=== PATIENT | female | born 1960 | race Caucasian/White ===

== ENCOUNTER 2022-06-07 15:13 | Outpatient (CLI) | payer OTHER, SELFPAY ==
--- NOTE | ~2022-06-07 | MM_ITS ---
EXAMINATION: MM screening [facility] BI w laurent HISTORY: Screening TECHNIQUE: Craniocaudal and mediolateral oblique 3-D tomosynthesis images were obtained and synthetic 2-D images were generated. CAD analysis was submitted and interpreted. COMPARISON: No prior mammogram is available for comparison at this institution. BREAST PARENCHYMAL COMPOSITION: The breasts are heterogeneously dense, which may obscure small masses . FINDINGS: There is no evidence of suspicious mass, calcification, or architectural distortion to sugg est malignancy in either breast. There has been no suspicious interval change. IMPRESSION: 1. No mammographic evidence of malignancy. 2. Recommend routine screening mammography in one year. BI-RADS Category 1: Negative Reviewed, dictated and finalized at location A. SLAUGHTERER
== END 2022-06-07 15:14 | disposition home or self-care (01) ==
LOC: ANHIMG 15:20
PROVIDERS: Visit Provider Family Medicine
DX: Z12.31 Encounter for screening mammogram for malignant neoplasm of breast (principal)
CPT/HCPCS: 77063; 77067

== ENCOUNTER 2023-06-28 12:51 | Outpatient (CLI) | payer OTHER, SELFPAY ==
--- NOTE | ~2023-06-28 | MM_ITS ---
EXAMINATION: MM screening yes[facility] BI w laurent HISTORY: Screening TECHNIQUE: Craniocaudal and mediolateral oblique 3-D tomosynthesis images were obtained and synthetic 2-D images were generated. CAD analysis was submitted and interpreted. COMPARISON: 06/07/2022 BREAST PARENCHYMAL COMPOSITION: Dense: The breasts are heterogeneously dense, which may obscure small masses FINDINGS: There is no evidence of suspicious mass, calcification, or architectural distortion to sugg est malignancy in either breast. There has been no suspicious interval change. IMPRESSION: 1. No mammographic evidence of malignancy. 2. Recommend routine screening mammography in one year. BI-RADS Category 1: Negative Reviewed, dictated and finalized at location A. TABOUT
== END 2023-06-28 12:52 | disposition home or self-care (01) ==
LOC: ANHIMG 12:57
PROVIDERS: Visit Provider Family Medicine
DX: Z12.31 Encounter for screening mammogram for malignant neoplasm of breast (principal)
CPT/HCPCS: 77063; 77067

== ENCOUNTER 2024-07-03 13:58 | Outpatient (CLI) | payer OTHER, SELFPAY ==
--- NOTE | ~2024-07-03 | MM_ITS ---
EXAMINATION: MM screening [facility] BI w laurent HISTORY: Screening mammogram TECHNIQUE: Craniocaudal and mediolateral oblique 3-D tomosynthesis images were obtained and synthetic 2-D images were generated. CAD analysis was submitted and interpreted. COMPARISON: 06/28/2023, 06/07/2022 BREAST PARENCHYMAL COMPOSITION:Dense: The breasts are heterogeneously dense, which may obscure small masses. FINDINGS: No suspicious mass, calcification, or architectural distortion are identified in either ty ast to suggest malignancy. There has been no suspicious interval change. IMPRESSION: No mammographic evidence of malignancy. Recommend routine screening mammography in one year. BI-RADS Category 1: Negative Reviewed, dictated and finalized at location . ALLERGY
--- OUTSIDE RECORDS SUMMARY | 2024-07-03 15:58 | XMS_ITS | Patient Health Summary ---
Author Organization [facility] [employer] Address [address] [place] [address] Care Team Providers Care Rust Proofer Name Role Phone Wendy Blanc MD Primary Care Provider [phone] Note from [facility],non-owned Affiliates and Associated Physician Practices is amultiple site organization consisting of ambulatory clinics and hospital sitesin [place], [place], [place] and [place]. This disclosure is being madepursuant to the Care Everywhere program and may not contain all information available regarding this patient. Last updated 18.[facility] [employer] Allergies No known active allergies Medications Be aware that medications may not be up to date on this document. Always verify current medications with the patient. No known medications Active Problems Problem Noted Date Diagnosed Date Encounter for cosmetic procedure 12/04/2023 Social History Tobacco Use Types Packs/Day Years Used Date Smoking Tobacco: Never Smokeless Tobacco: Never Tobacco Cessation:Counseling Given: Not Answered Alcohol Use Standard Drinks/Week Comments Yes 0 (1 standard drink = 0.6 oz pur e alcohol) socially Sex and Gender Information Value Date Recorded Sex Assigned at Not on file Gender Identity Not on file Sexual Orientation Not on file Procedures * XR KNEE RIGHT 4VW OR MORE(Performed 10/28/2014) Performed for Pain in joint, lower leg, right Results * XR KNEE 4+ VW RIGHT (10/28/2014 1:11 PM CDT) Anatomical Region Laterality Modality Lower Extremity Radiographic Svaannah ging 10/28/2014 3:17 PM CDT Impressions 10/28/2014 3:47 PM CDT Minimal spurring. Edited by Michelle Aguilar on 10/28/2014 3:27 PM Narrative 10/28/2014 3:47 PM CDT Right Knee - Four Views. History: Knee pain. Four views of the knee demonstrate well-maintained joint spaces. There is minimal spurring on the distal femur laterally. There is no joint effusion identified. Procedure Note Gama Aragon MD - 10/28/2014 Right Knee - Four Views. History: Knee pain. Four views of the knee demonstrate well-maintained joint spaces. There is minimal spurring on the distal femur laterally. There is no joint effusion identified. IMPRESSION Minimal spurring. Edited by Michelle Aguilar on 10/28/2014 3:27 PM Vinay Morocho MD DIAGNOSTIC IMAGING O [facility] Care Teams Rust Proofer Relationship Specialty Start Date End Date Wendy Blanc MD PCP - General Family Medicine 11/28/23
--- OUTSIDE RECORDS SUMMARY | 2024-07-03 15:58 | XMS_ITS | Clinical Summary ---
Author Organization [facility] [employer] Address [address] [place] [address] Care Team Providers Care Extension Service Specialist Name Role Phone Wendy Blanc MD Primary Care Provider [phone]- [phone] Source Comments [facility] [employer],non-[facility] Affiliates and Associated Physician Practices is amultiple site organization consisting of ambulatory clinics and hospital sitesin [place], [place], [place] and [place]. This disclosure is being madepursuant to the Care Everywhere program and may not contain all information available regarding this patient. Last updated 18.[employer] Allergies No known active allergies Medications * Be aware that medications may not be up to date on this document. Alwaysverify current medications with the patient. 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 Cosmetic Visit [facility] - Cosmetic Dermatology [address] [place] [address] Mariah Albright MD Encounter for cosmetic procedure 06/20/2024 Travel from Last 3 Months Family History Medical History Relation Name Comments Cancer - Skin, Melanoma Neg Hx Cancer - Skin, Non Melanoma Neg Hx Social History Tobacco Use Types Packs/Day Years Used Date Smoking Tobacco: Never Smokeless Tobacco: Never Tobacco Cessation:Counseling Given: Not Answered Alcohol Use Standard Drinks/Week Comments Yes 0 (1 standard drink = 0.6 oz pur e alcohol) socially Sex and Gender Information Value Date Recorded Sex Assigned at Not on file Gender Identity Not on file Sexual Orientation Not on file Plan of Treatment Upcoming Encounters Date Type Department Care Team (Late st Contact Info) Description 09/26/2024 2:00 PM CDT Cosmetic Visit [facility] - Cosmetic Dermatology [address] [place] [address] Mariah Albright MD [address] [place] [address] Health Maintenance Due Date Last Done Comments COLOGUARD (AGES 45-75) - COL ON CA SCREENING 1961 COLON MONITORING 1961 COLONOSCOPY - COLON CA SCREENING 1961 CT COLONOGRAPHY - COLON CA SCREENING 1961 Colorectal Cancer Screening 1961 FIT - COLON CA SCREENING 1961 FLEX SIG - COLON CA SCREENING 1961 LIPID TESTING 1961 MAMMOGRAM 1961 PAP SMEAR 1961 HIV SCREENING 1976 HEPATITIS C SCREENING 03/17/1979 DTAP/TDAP/TD VACCINES (1 - Tdap) 1980 PNEUMOCOCCAL VACCINE 50+ (1 of 1 - PCV) 2011 ZOSTER VACCINE (1 of 2) 2011 COVID-19 VACCINE ( - 2023-2 5 season) 2024 INFLUENZA VACCINE (#1) 2024 DEPRESSION SCREENING 05/08/2024 Respiratory Syncytial Virus (RSV) Vaccine Pt: or over 60 yrs (1 - 1-dose 75+ series) 2036 HEPATITIS B VACCINE Aged Out No longe r eligible based on patient's age to complete this topic HIB VACCINE Aged Out No longer eligi ble based on patient's age to complete this topic HPV VACCINE Aged Out No longer eligi ble based on patient's age to complete this topic MENINGOCOCCAL (Group B) VACCINE Aged Out No longer eligible based on patient's age to complete this topic MENINGOCOCCAL VACCINE Aged Out No megan alise eligible based on patient's age to complete this topic Care Teams Extension Service Specialist Relationship Specialty Start Date End Date Wendy Blanc MD PCP - General Family Medicine 11/28/23
--- OUTSIDE RECORDS SUMMARY | 2024-07-03 15:58 | XMS_ITS | Referral Summary ---
Author Organization [facility] [employer] Address [address] [place] [address] Care Team Providers Care Agricultural Equipment Sales Engineer Name Role Phone Wendy Blanc MD Primary Care Provider [phone]- [phone] Source Comments [facility] [employer],non-[facility] Affiliates and Associated Physician Practices is amultiple site organization consisting of ambulatory clinics and hospital sitesin [place], [place], [place] and [place]. This disclosure is being madepursuant to the Care Everywhere program and may not contain all information available regarding this patient. 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 Cosmetic Visit [facility] - Cosmetic Dermatology [address], [facility] [address] [place] [id number] Mariah Albright MD Encounter for cosmetic procedure from Last 3 Months Allergies No known active allergies Medications * [...] Dermatology [address] [place] [address] Mariah Albright MD [address] [place] [address] Care Teams Agricultural Equipment Sales Engineer Relationship Specialty Start Date End Date Wendy Blanc MD PCP - General Family Medicine 11/28/23
--- OUTSIDE RECORDS SUMMARY | 2024-07-03 15:58 | XMS_ITS | Clinical Summary ---
Author Organization [facility] Address [address] [facility] [facility], [address] [address] Phone Care Team Providers Care Sander And Buffer Name Role Phone Evaristo Goldberg MD Unavailable [phone] Provider, None Primary Care Provider Unavailabl e Allergies No known active allergies Medications No known medications Family History Medical History Relation Name Comments Diabetes Father Cancer Mother colon? Cancer Paternal Grandmother breast Relation Name Status Comments Father Mother Paternal Grandmother Social History Tobacco Use Types Packs/Day Years Used Date Smoking Tobacco: Never Smokeless Tobacco: Never Alcohol Use Standard Drinks/Week Comments Yes 2 (1 standard drink = 0.6 oz pur e alcohol) Comments Unknown Sex and Gender Information Value Date Recorded Sex Assigned at Not on file Legal Sex Female 2:23 PM CDT Gender Identity Not on file Sexual Orientation Not on file Last Filed Vital Signs Vital Sign Reading Time Taken Comments Blood Pressure - - Pulse - - Temperature - - Respiratory Rate - - Oxygen Saturation - - Inhaled Oxygen Concentration - - Weight 53.1 kg (117 lb) 03/09/2018 7:00 AM CDT Height 157.5 cm (5' 2 ) 03/09/2018 7:00 AM CDT Body Mass Index 21.4 03/09/2018 7:00 AM CDT Plan of Treatment Health Maintenance Due Date Last Done Comments Hepatitis C Virus (HCV) Screening 1961 TdaP Immunization 1961 Pap Smear 1982 Cervical Cancer Screening (CCS) 1991 HPV/Cotest 1991 Colonoscopy 2006 Colorectal Cancer Screening 2006 Cologuard 2011 Immunochemical Fecal Occult Blood 2011 Mammogram 2011 Pneumococcal Immunization (5 0+ years) (1 of 1 - PCV) 2011 Zoster Immunization (1 of 2) 2011 Influenza Immunization (#1) 2024 SARS-COV-2 Immunization ( - 2023- season) 2024 Respiratory Syncytial Virus (RSV) Immunization (Adult) (1 - 1-dose 75+ series) 2036 Hepatitis B Immunization Aged Out No longer eligible based on patient's age to complete this topic Meningococcal Immunization (ACWY) Aged Out No longer eligible based on patient's age to complete this topic Pneumococcal Immunization Combined Aged Out No longer eligible based on patient's age to complete this topic Rotavirus Immunization Aged Out No lo nger eligible based on patient's age to complete this topic Insurance [employer] Care Teams Sander And Buffer Relationship Specialty Start Date End Date Provider, None [place] PCP - General 03/15/18 Evaristo Goldberg MD [address] [facility] [address] [address] Obstetrics & Gynecology 01/11/18
--- OUTSIDE RECORDS SUMMARY | 2024-07-03 15:58 | XMS_ITS | Data Portability ---
Author Organization [facility] Maura Covarrubias Address [address] [place] [address] Care Team Providers Care Business Development Agent Name Role Phone KAROLINE LIZAMA Primary Care Provider OSVALDO MABRY Derrick Boat Runner Unavailable Assessment No assessment recorded. Plan of Treatment Reminders Order Date Submit Date Provider Last Modified By Organization Details Last Modified Time Details Appointments None recorded. Lab pap, IG + HPV 2019 020 [facility], [address] [place] [address] [place], [address], 0 20:35:50 Referral None recorded. Procedures None recorded. Surgeries None recorded. Imaging MAMMO, screening, digital, bilateral 2024 025 [facility] (Mammography) , [address], [place], [address], 5 15:53:10 MAMMO, screening, digital, bilateral 2022 023 [facility] (Mammography) , [address], [place], [address], 4 11:38:55 MAMMO, screening, digital, bilateral - pt is IBCCP 2021 022 [facility], [address] [place] [address] [address], [place], [address], 3 13:28:35 MAMMO, screening, digital, bilateral 2019 020 [facility], [address], [place], [address], 0 22:30:42 MAMMO, screening, digital, bilateral - [facility] [place]. 2016 017 [facility], [address], [place], [address], 7 10:15:46 Medication Orders None recorded. Patient TargetsNo targets recorded. Patient Instructions Encounter Date Encounter Id Patient Instructions Last Modified By Organization Details Last Modified Time 04/06/2020 [id number] learning about breast cancer screening [email or web address] Not available 04/06/2020 11:27:59 Reason for Referral None Reported. Results Created Date Observation Date Name Description Value Unit Range Abnormal Flag Note LastModifiedBy Organization Detail LastModifiedTime 04/06/20 20 04/08/2020 pap, IG + HPV diagnosis: Rasta DUNBAR FOR INTRA EPITH ELIAL SABINE N OR DREW THOMPSON . CELLU LAR CASTELAN ES ASSOC IATED WITH ATROP HY ARE PRESE NT. Not Available [facility] ([facility]) [address] [facility], [place], [address], 04/08/2020 20:35:50 04/06/20 20 04/08/2020 pap, IG + HPV specimen adequacy: Rasta walsh Satis facto ry for evalu ation . Endoc ervic al compo nent may not be disti nguis hed in cases of atrop hy. Not Available [facility] ([facility]) [address], [place], [address], 04/08/2020 20:35:50 04/06/20 20 04/08/2020 pap, IG + HPV clinician provided ICD10: Rasta walsh Z12.4 Not Available [facility] ([facility]) [address] [facility] [address], [place], [address], 04/08/2020 20:35:50 04/06/20 20 04/08/2020 pap, IG + HPV performed by: Commen t Reyna Harri son, [employer] e[employer] logis t (ASCP ) Not Available [facility] ([facility]) [address], [place], [address], 04/08/2020 20:35:50 04/06/20 20 04/08/2020 pap, IG + HPV . . Not Available [facility] ([facility]) [address], [place], [address], 04/08/2020 20:35:50 04/06/20 20 04/08/2020 pap, IG + HPV note: Commen t The Pap smear is a scree missy test desig ko to aid in the detec tion of justo ligna nt and malig nant condi tions of the uteri ne cervi x. It is not a diagn ostic proce dure and shoul d not be used as the sole means of detec ting cervi antonia cance r. Both false -posi tive and false -nega tive repor ts do occur . Not Available [facility] ([facility]) [address], [place], [address], 04/08/2020 20:35:50 04/06/20 20 04/08/2020 pap, IG + HPV test methodology: Rasta t This liqui d based ThinP rep(R ) pap test was scree ko with the use of an image guide sylvester mortensen. Not Available [facility] ([facility]) [address], [place], [address], 04/08/2020 20:35:50 04/06/20 20 04/08/2020 pap, IG + HPV HPV, high-risk Negati ve negati ve This nucle ic acid ampli ficat ion high- risk HPV test detec ts thirt een high- risk types (16,1 8,31, 33,35 ,39,4 5,51, 52,56 ,58,5 9,68) witho ut diffe renti ation . EFF ECTIV E JANUA RY 2020 THIS TEST WILL BE MADE NON-O RDERA BLE. SEE [facility] RP DIREC TORY OF SERVI BUCK FOR ALTER NATIV ES TO THE HIGH RISK HPV TEST. ANY PROFI LE THAT INCLU ROBER THIS TEST WILL ALSO BE MADE NON-O RDERA BLE.* * Not Available [facility] ([facility]) [address], [place], [address], 04/08/2020 20:35:50 09/28/19 17 09/22/2015 MAMMO , jge missy, bilat eral No observ ation record ed. BARCODE Not Available 2016 15:57:14 10/01/19 17 09/28/2016 MAMMO , jge missy, digit al, bilat eral No observ ation record ed. [address] [facility] [address], [place], [address], 09/30/2016 16:09:57 04/15/20 20 04/14/2020 MAMMO , ruthie louis, digit al, bilat eral No observ ation record ed. [facility] [address], [place], [address], 04/16/2020 11:35:49 04/28/20 20 04/28/2020 MAMMO , diagn ostic , unila teral No observ ation record ed. [facility] [address], [place], [address], 05/06/2020 09:48:40 04/28/20 20 04/28/2020 MAMMO , diagn ostic , unila teral No observ ation record ed. [facility] [address], [place], [address], 05/06/2020 09:49:09 06/08/19 23 06/07/2022 MAMMO , jge missy, digit al, bilat eral No observ ation record ed. [facility] [address], [place], [address], 06/08/2022 16:06:26 06/29/19 24 06/28/2023 MAMMO , ruthie louis, mari al, bilrupinder wong No observ ation record ed. [facility] [address], [place], [address], 06/30/2023 15:22:32 Result Notes None recorded. Problems Name Problem SNOMED Code Status Onset Date Resolution Date Notes Provider Name and Address Organization Details Recorded Time No current problems or disability 861833392 Active Cary Junior [place] null, [place] - [place] 3 14:06:25 Screening for malignant neoplasm of colon Completed 201604/18/2022 OSVALDO MABRY MD Attn: Loy sol,[address] [facility], [place], [address], [facility] - [place] 2 16:57:59 Problem Notes None recorded. Procedures Surgical History Date Name Laterality Status Provider Name and Address Organization Details Recorded Time 4 Date of Last Mammogram completed Carola Loomis [place] - [place] 05/16/2024 14:38:20 0 Date of Last Pap Smear completed Shea Anthony [place] - [place] 04/18/2022 16:16:01 9 Wrist arthroscopy/oneal rgery completed Tc Singh [place] - [place] 09/27/2016 14:47:50 Imaging Results Imaging Date Name Status [facility]Modified by [facility] Details LastModified Time 09/22/2015 MAMMO, screening, bilateral completed [facility] Information not available 09/27/2016 15:57:14 09/28/2016 MAMMO, screening, digital, bilateral completed [place] [id number] [facility] [address] [place], [address], 09/30/2016 16:09:57 04/14/2020 MAMMO, screening, digital, bilateral completed [facility] [address] [place], [address], 04/16/2020 11:35:49 04/28/2020 MAMMO, diagnostic, unilateral completed [facility] [address], [place], [address], 05/06/2020 09:48:40 04/28/2020 MAMMO, diagnostic, unilateral completed [facility] [address], [place], [address], 05/06/2020 09:49:09 06/07/2022 MAMMO, screening, digital, bilateral completed [address] [place] [address], [address], 06/08/2022 16:06:26 06/28/2023 MAMMO, screening, digital, bilateral completed [address], [address], 06/30/2023 15:22:32 Procedure Notes None recorded. Medical Equipment None Reported. Allergies No known drug allergies Medications Name Sig Start Date Stop Date Status Note LastModified by Organization Details LastModified Time azithromyc in 250 mg tablet FOLLOW PACKAGE DIRECTION S 04/26 completed Not Available Not Available Not Available benzonatat e 200 mg capsule 04/26 completed Not Available Not Available Not Available estradiol 0.1 mg/24 hr semiweekly transderma l patch APPLY 1 PATCH TRANSDERM ALLY 2 TIMES PER WEEK 05/16 completed not using Not Available Not Available Not Available penicillin V potassium 500 mg tablet TAKE 1 TABLET BY MOUTH EVERY 6 HOURS UNTIL ALL TAKEN 04/18 completed Not Available Not Available Not Available amoxicilli n 500 mg tablet TAKE 1 TABLET BY MOUTH EVERY 8 HOURS FOR 5 DAYS. 05/16 completed Not Available Not Available Not Available progestero ne micronized 200 mg capsule TAKE 2 CAPSULES BY MOUTH AT BEDTIME 04/26 completed Not Available Not Available Not Available BD Tuberculin Syringe 1 mL 25 gauge x 5/8 U TO INJECT T2 04/06 completed Not Available Not Available Not Available ibuprofen 600 mg tablet TAKE 1 TABLET BY MOUTH EVERY 8 HOURS NEEDED FOR PAIN FOR 5 DAYS 05/16 completed Not Available Not Available Not Available methylpred nisolone 4 mg tablets in a dose pack FOLLOW PACKAGE DIRECTION S 04/26 completed Not Available Not Available Not Available amoxicilli n 875 mg-potassi um clavulanat e 125 mg tablet TAKE 1 TABLET BY MOUTH EVERY 12 HOURS FOR 10 DAYS 04/26 completed Not Available Not Available Not Available Vitals Date Recorded Body weight Body mass index (BMI) Body height Systolic blood pressure Diastolic blood pressure Provider Name and Address Organization Details Last Updated DateTime 04/06/2020 26185.78 g 22.4 kg/m2 157.48 cm 118 mm[Hg] 72 mm[Hg] Lotus Morriste [facility] 0 11:12:17 Date Recorded Body height Body mass index (BMI) Body weight Body temperature Oxygen saturation Oxygen saturation in Arterial blood by Pulse oximetry Heart rate Systolic blood pressure Diastolic blood pressure Provider Name and Address Organization Details Last Updated DateTime 2 157.48 cm 22.6 kg/m2 79225.6 1 g 97.9 [degF] 96 % 96 % 64 /min 106 mm[Hg] 68 mm[Hg] Shea Anthony MA [facility] 2 16:11:58 Date Recorded Body height Body mass index (BMI) Body weight Oxygen saturation Oxygen saturation in Arterial blood by Pulse oximetry Heart rate Respiratory rate Body temperature Systolic blood pressure Diastolic blood pressure Provider Name and Address Organization Details Last Updated DateTime 3 157.48 cm 21.6 kg/m2 51644.2 6 g 98 % 98 % 61 /min 12 /min 98.4 [degF] 97 mm[Hg] 67 mm[Hg] Cary Junior MA [facility] 3 14:09:53 Date Recorded Body height Body mass index (BMI) Body weight Oxygen saturation Oxygen saturation in Arterial blood by Pulse oximetry Heart rate Body temperature Systolic blood pressure Diastolic blood pressure Provider Name and Address Organization Details Last Updated DateTime 5 157.48 cm 22.5 kg/m2 88451.2 1 g 97 % 97 % 52 /min 97.8 [degF] 109 mm[Hg] 65 mm[Hg] Carola Loomis MA [facility] 5 14:36:02 Date Recorded Body height Body weight Body mass index (BMI) Body temperature Heart rate Respiratory rate Systolic blood pressure Diastolic blood pressure Provider Name and Address Organization Details Last Updated DateTime 7 157.48 cm 09257.6 8 g 21.9 kg/m2 98.3 [degF] 72 /min 12 /min 110 mm[Hg] 64 mm[Hg] Tc Singh [facility] 7 14:44:11 Social History Question Answer Notes LastModified by Organizat ion Details LastModified Time Tobacco Smoking Status Never Smoker Tc Singh [facility], [facility] 09/27/2016 14:46:26 Do You Have An Advance Directive? Yes Information not available 09/27/2016 What Is Your Level Of Alcohol Consumption? Occasional Just A Glass Of Wine Here Of There Information not available 04/18/2022 Are You Blind Or Do You Have Difficulty Seeing? No Information not available 04/26/2023 Is Blood Transfusion Acceptable In An Emergency? Yes Information not available 04/06/2020 What Is Your Level Of Caffeine Consumption? Moderate Information not available 09/27/2016 How Much Tobacco Do You Chew? None Information not available 09/27/2016 In The 14 Days Before Symptom Onset, Have You Had Close Contact With A Laboratory-confir med COVID-19 While That Case Was Ill? No Information not available 04/18/2022 In The 14 Days Before Symptom Onset, Have You Had Close Contact With A Person Who Is Under Investigation For COVID-19 While That Person Was Ill? No Information not available 04/18/2022 Have You Been To An Area Known To Be High Risk For COVID-19? No Information not available 04/18/2022 Are You Currently Employed? Yes Information not available 04/06/2020 Are You Deaf Or Do You Have Serious Difficulty Hearing? No Information not available 04/26/2023 What Type Of Diet Are You Following? REGULAR Information not available 09/27/2016 Which Illicit Or Recreational Drugs Have You Used? Denies Information not available 04/06/2020 Do You Or Have You Ever Used E-cigarettes Or Vape? Never Used Electronic Cigarettes [email or web address] Information not available 04/06/2020 Education 12 Information no t available 09/27/2016 What Is Your Occupation? [employer] [email or web address] Information not available 04/06/2020 Are There Any Guns Present In Your Home? No Information not available 09/27/2016 Hard Of Hearing Or Deaf In One Or Both Ears? No Information not available 09/27/2016 Legally Blind In One Or Both Eyes? No Information no t available 09/27/2016 Live Alone Or With Others? With Others [email or web address] Information not available 04/06/2020 Marital Status Informatio n not available 09/27/2016 What Was The Date Of Your Most Recent Tobacco Screening? 05/16/2024 Information not available 05/16/2024 How Many Children Do You Have? 1 [email or web address] Information not available 04/06/2020 Performs Monthly Self-breast Exam? Yes Information no t available 09/27/2016 Do You Use Protection During Sex? No [email or web address] Information not available 04/06/2020 What Is Your Relationship Status? [email or web address] Information not available 04/06/2020 Do You Use Your Seat Belt Or Car Seat Routinely? Yes Information not available 04/26/2023 Seat Belts Used Routinely Yes Information not available 09/27/2016 Are You Sexually Active? Yes [email or web address] Information not available 04/06/2020 Smoke Alarm In Home Yes Information not available 09/27/2016 Do You Have Smoke And Carbon Monoxide Detectors In Your Home? Yes Information not available 04/18/2022 Do You Or Have You Ever Used Smokeless Tobacco? Never Used Smokeless Tobacco [email or web address] Information not available 04/06/2020 How Much Tobacco Do You Smoke? No Information not available 09/27/2016 General Stress Level Low [email or web address] Information not available 04/06/2020 Do You Feel Stressed (tense, Restless, Nervous, Or Anxious, Or Unable To Sleep At Night)? [id number] Information not available 04/26/2023 Do You Use Any Illicit Or Recreational Drugs? No Information not available 04/26/2023 Do You Use Sunscreen Routinely? Yes Information not available 09/27/2016 Has Tobacco Cessation Counseling Been Provided? No Information not available 05/16/2024 On What Date Was Tobacco Cessation Counseling Provided? 04/26/2023 Information not available 04/26/2023 Do You Or Have You Ever Used Any Other Forms Of Tobacco Or Nicotine? No Information not available 05/16/2024 Sex: Female Functional Status Question Answer Note LastModified by Organization D etails LastModified Time Are you able to care for yourself? Yes Information n ot available 04/26/2023 What is your exercise level? Heavy Information not available 09/27/2016 Mental Status None recorded. Family History Relationship Description Onset Age of this Age Resolved Age Notes LastModified by Organization Details LastModified Time Father Diabetes mellitus Not available 2016 14:46:03 Father Heart disease Not available 2016 14:46:10 Father Kidney disease Not available 2016 14:46:17 Paternal Grandmother Malignant tumor of breast [email or web address] Not available 04/06 11:06:53 Notes:pt mother at the age 24 but she is unsure the cause. Medical History Condition Response Coronary Artery Disease N Other N High Blood Pressure N Atrial Fibrillation N Breast Cancer N Lung Disease N Depression N COPD N Blood Clots N Breast Problem N Anesthesia Complications N Headaches/Migraines N Anxiety Disorder N Muscle, Joint, or Bone Problems N Infertility N Polyps N Acid Reflux (GERD) N Cancer N Stroke N Endometriosis N High Cholesterol N Liver Disease N Headaches N Thyroid Problems N Kidney or Bladder Problems N GI Problems N Acne N Have you had a mammogram in the last yea r? Y Eating Disorder N Skin Problems N Anemia N Heart Attack ([place]) N Diabetes N Ovarian Cancer N Blood Transfusions N Seizures/Epilepsy N Abuse/Domestic Violence N Asthma N Allergies N Hepatitis N Heart Disease N Pre-Eclampsia N Heart Failure N Osteoporosis N Gynecological History Statement/Question Response Date of Last Mammogram 06/28/2023 On BCP's at Conception? N STIs/STDs N HPV Vaccine Age at Menarche 15 Current Control Method Menopause Age at First Child 24 If Post Menopausal, Age at Menopause 48 Sexually Active? Y Menses Monthly Y Date of Last Pap Smear 04/06/2020 Sexual Problems? N LMP Obstetrics History GPAL:G 2 P 1 0 1 1 Type Value Multiple Births 0 Full Term 1 Induced 1 Spontaneous 0 Premature 0 Living 1 Ectopics 0 Total 2 Past Encounters Encounter ID Performer Location Encounter Start Date Encounter Closed Date Diagnosis/Indication Diagnosis SNOMED-CT Code Diagnosis ICD10 Code Diagnosis Note [id number] AN[facility] Awan (Adult Med) [address] [place] [address] 09/27/2016 14:37:06 09/27/2016 18:05:52 Screening for malignant neoplasm of colon 782591827 Z12.11 [facility] - Will order to [facility] in [place], [place] [id number] Aimee Harvey ([employer]) [address] [place] [address] 04/06/2020 10:48:21 04/07/2020 08:38:36 Screening for malignant neoplasm of cervix 460487501 Z12.4 Normal female exam. Last pap done 09/21/15 was negative with negative hr-HPV. Next pap due prior to next annual exam. Pap done. Screening for malignant neoplasm of breast 577897241 Z12.39 Normal clinical breast exam. Mammogram ordered. [id number] MD Wes DE LA ROSA ([employer]) [address] [place] [address] 04/18/2022 15:58:03 04/19/2022 10:21:04 Screening for malignant neoplasm of breast 401335698 Z12.31 - Due for screening mammogram; ordered today- Clinical breast exam normal [id number] MD Wes DE LA ROSA ([employer]) [address] [place] [address] 04/26/2023 13:40:47 04/27/2023 09:57:48 Screening for malignant neoplasm of breast 667323473 Z12.31 - Due for screening mammogram; ordered today- Clinical breast exam normal [id number] MD Wes DE LA ROSA ([employer]) [address] [place] [address] 05/16/2024 14:14:34 05/17/2024 11:04:15 Screening for malignant neoplasm of breast 362300022 Z12.31 - Clinical breast exam not indicated for breast cancer screening, as breast awareness is now recommende d in addition to routine screening mammograms - Scheduled for screening mammogram by [facility] at [facility]. Appointmen t is on 07/03/24. Order for imaging placed today. Health Concerns Section Related Observation LastModified by Organization Detai ls LastModified Time None Recorded Concern Status LastModified by Organization Details LastModified Time None Recorded Advance Directives Directive Y: Payers Encounter Date Sequence Insurance Name Policy Number Policy Shah Covered Member ID Shah Member ID Guarantor Name 09/27/2016 [facility] Yolie 0 Naz Yolie 04/06/2020 [facility] Naz Yolie 0 Naz Yolie 04/18/2022 [facility] Naz Yolie 0 Naz Yolie 04/26/2023 [facility] Naz Yolie 0 Naz Yolie 05/16/2024 [facility] Naz Yolie [facility] Naz Yolie Notes Date Note Type Note Provider Name and Address Organization Details Recorded Time 09/27/2016 text/html Patient is here for [facility] breast exam. She denies any breast pain, lumps, nipple discharge. States that lat year they did an US of her left breast d/t an asymmetry but that resolved. States that her paternal grandmother had a breast issue but she is not sure what. Patient has results with her from last pap smear (09/2015 WNL) and mammogram (09/2015 WNL) - only needs CBE today Shea Ortiz PA-C Attn: Accounting,[address] [facility], [place], [address], [place] - [facility] 09/28/2016 12:57:38 04/06/2020 text/html Pt. presents fro [facility] for breast and pelvic exam with pap. She has no complaints. Aimee pozo, [place] - [facility] 04/06/2020 11:30:01 04/18/2022 text/html Annual wellness- PCP: Aruna Lizama MD Concerns today- Here for breast [facility] screening [facility]- Has off and on spotting and bleeding after being on progesterone and estradiol for 8 months; was told to increase dose to two tablets and has not had problems since then- HRT managed by Dr. Lizama Infection risk- Prior testing for HIV? Yes - neg in the past per patient report- Prior testing for HepC? No- History of STIs? No- Currently having unprotected sex? Yes - with of 30+ years; no concern for STI Plans for - Menopause since age 48 Cancer screenings- Breast cancer: Last mammogram was 2020. Has dense breasts. No breast changes.- Cervical cancer: Last screening 03/2020 -- NILM with neg hr-HPV test- Colon cancer: History of negative Cologuard per patient report- Lung cancer: Never smoker. OSVALDO MABRY MD Attn: Accounting,[address] [place], [address], [facility] - [place] 04/18/2022 16:59:28 04/26/2023 text/html [facility] ExamBreast Cancer Risk Assessment- Lifetime risk: 5.2%- High risk for breast cancer? No- Last mammo: 05/2022 -- neg- No breast changes- Mammogram already scheduled for Jun 2023 Cervical Cancer Risk Assessment- High risk for cervical cancer? No- Last screenin03/2020 -- NILM with neg hr-HPV test--- Concerns today- None Infection risk- Prior testing for HIV? Yes - neg in the past per patient report- Prior testing for HepC? No- History of STIs? No- Currently having unprotected sex? Yes - with of 30+ years; no concern for STI Plans for - Menopause since age 48 Cancer screenings- Colon cancer: History of negative Cologuard per patient report- Lung cancer: Never smoker. OSVALDO MABRY MD Attn: Accounting,[address] [place], [address], [place] - [facility] 04/26/2023 14:30:32 05/16/2024 text/html [facility] ExamBreast Cancer Risk Assessment- Lifetime risk: 4.4%- High risk for breast cancer? No- Last mammo: 06/2023 -- neg Cervical Cancer Risk Assessment- High risk for cervical cancer? No- Last screenin03/2020 -- NILM with neg hr-HPV test--- Concerns today- None Infection risk- Prior testing for HIV? Yes - neg in the past per patient report- Prior testing for HepC? No- History of STIs? No Plans for - Menopause since age 48 Cancer screenings- Colon cancer: History of negative Cologuard per patient report- Lung cancer: Never smoker. OSVALDO MABRY MD Attn: Accounting,[address] [place], [address], [facility] - [facility] 05/16/2024 14:58:59 OBGyn Episode Ob Episode Information Episode Created Date Number of Fetuses Patient Bloodtype Patient rh Status Prepregnancy Weight lbs Domestic Partner Domestic Partner Phone Father Name Cutter Head Sharpener Status 04/06/20 20 1 CLOSED Fetus Data First Name Last Name Admitted to NICU Weight (g) Sex Living Outcome Pediatric Complications Fetus ID Race Codes Race Delivery Type F Full Term [id number] Vaginal Az Calculation Initial Az Date Initial Exam Date Initial Exam Provider Initial Ultrasound Date Last Menstrual Period Date Ultra Sound Weeks Gestation 0 Eighteen To Twenty Week Az Update Ultra Sound Date Fundal Height At Umbil Quickening Date Ultra Sound Latest Weeks Gestation Final Az Confirmed By Final Az Confirmed Date Final Az Date Ultra Sound Latest Days Gestation 0 0 Menstrual History Last Menstrual Date Menses Monthly On Bcp Conception Prior Menses Frequency Hcg Plus Date Menarche Onset Age Delivery Information Delivery Date Delivery Type Labor Anesthesia Weeks Gestation Incision Type Labor Labor Length Hrs Delivered By Post Complications Tubal Sterilization Discharge Date Comments 4 Discharge Information Feeding Method Contraceptive Method Maternal HG B and HCT Levels Ob Episode Information Episode Created Date Number of Fetuses Patient Bloodtype Patient rh Status Prepregnancy Weight lbs Domestic Partner Domestic Partner Phone Father Name Cutter Head Sharpener Status 04/06/20 20 1 CLOSED Fetus Data First Name Last Name Admitted to NICU Weight (g) Sex Living Outcome Pediatric Complications Fetus ID Race Codes Race Delivery Type , Induced [id number] Az Calculation Initial Az Date Initial Exam Date Initial Exam Provider Initial Ultrasound Date Last Menstrual Period Date Ultra Sound Weeks Gestation 0 Eighteen To Twenty Week Az Update Ultra Sound Date Fundal Height At Umbil Quickening Date Ultra Sound Latest Weeks Gestation Final Az Confirmed By Final Az Confirmed Date Final Az Date Ultra Sound Latest Days Gestation 0 0 Menstrual History Last Menstrual Date Menses Monthly On Bcp Conception Prior Menses Frequency Hcg Plus Date Menarche Onset Age Delivery Information Delivery Date Delivery Type Labor Anesthesia Weeks Gestation Incision Type Labor Labor Length Hrs Delivered By Post Complications Tubal Sterilization Discharge Date Comments Discharge Information Feeding Method Contraceptive Method Maternal HG B and HCT Levels
--- OUTSIDE RECORDS SUMMARY | 2024-07-03 15:58 | XMS_ITS | Clinical Summary ---
Author Organization [facility] Address [address] [place] [address] Phone Care Team Providers Care Associate Director Name Role Phone Eliezer Guillermo MD Primary Care Provider [phone] Allergies No known active allergies Medications No known medications Active Problems Problem Noted Date Diagnosed Date R Wrist Fracture 05/25/2009 Family History Medical History Relation Name Comments Diabetes Father Heart Disease Father High Cholesterol Father Hypertension Father Kidney Disease Father Heart Disease Mother High Cholesterol Mother Hypertension Mother Relation Name Status Comments Father Alive Mother Alive Social History Tobacco Use Types Packs/Day Years Used Date Smoking Tobacco: Never Smokeless Tobacco: Never Alcohol Use Standard Drinks/Week Comments No 0 (1 standard drink = 0.6 oz pur e alcohol) Comments Unknown Sex and Gender Information Value Date Recorded Sex Assigned at Not on file Legal 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 Gender Identity Not on file Sexual Orientation Not on file Occupation Industry Job Start Date Job End Date Not on file Not on file Not on file Not on file Last Filed Vital Signs Vital Sign Reading Time Taken Comments Blood Pressure 104/60 09/03/2014 2:31 PM CDT Pulse 68 09/03/2014 2:31 PM CDT Temperature 36.9 C (98.4 F) 09/03/2014 2:31 PM CDT Respiratory Rate 20 05/28/2009 11:01 AM CLINICAL NURSING ASSISTANT Oxygen Saturation 95% 05/28/2009 11:01 AM CLINICAL NURSING ASSISTANT Inhaled Oxygen Concentration - - Weight 53.5 kg (118 lb) 09/03/2014 2:31 PM CDT Height 157.5 cm (5' 2 ) 09/03/2014 2:31 PM CDT Body Mass Index 21.58 09/03/2014 2:31 PM CDT Plan of Treatment Health Maintenance Due Date Last Done Comments DTAP/TDAP/TD VACCINES (1 - Tdap) 1980 CERVICAL CANCER SCREENING 1991 BREAST CANCER SCREENING 2001 COLORECTAL SCREENING 2006 Colorectal Cancer Screening 2006 FIT-DNA Q 3 years 2006 FIT/FOBT Q 1 year 2006 Flex Sig/CT Colonography Q 5 years 2006 ZOSTER VACCINE (1 of 2) 2011 INFLUENZA VACCINE (#1) 2023 Preventative Visit- Commercial 05/08/2024 09/03/2014 RSV VACCINE (60+ or ) (1 - 1-dose 75+ series) 2036 Medical Devices Implanted Type Area Formula Room Worker Device Identifier Shelf Expiration Date Model / Serial / Lot Log [id number] - Synthes Distal Radius Plating System - 1 - Plate Lcp Volar Dis Radius Lt 8h [id number] Implanted:Qty: 1 on 05/28/2009 at [facility] Plate Left: Wrist SYNTHES STRATEC [id number] / / Description:load 53, Mar 25, 2009 Log [id number] - Synthes Distal Radius Plating System - 1 - Screw Loc St 2.4x16mm 212.816 Implanted:Qty: 2 on 05/28/2009 at [facility] Screw Left: Wrist SYNTHES STRATEC 212.816 / / Log [id number] - Synthes Distal Radius Plating System - 1 - Screw Loc St 2.4x18mm 212.818 Implanted:Qty: 3 on 05/28/2009 at [facility] Screw Left: Wrist SYNTHES STRATEC 212.818 / / Description:load 33/ May 19, 2009 Log [id number] - Synthes Distal Radius Plating System - 1 - Screw Ivan Self Tap 2.7x14mm 202.814 Implanted:Qty: 2 on 05/28/2009 at [facility] Screw Left: Wrist SYNTHES STRATEC 202.814 / / Log [id number] - Synthes Distal Radius Plating System - 1 - Screw Ivan Self Tap 2.7x12mm 202.812 Implanted:Qty: 1 on 05/28/2009 at [facility] Screw Left: Wrist SYNTHES STRATEC 202.812 / / Insurance Advance Directives For more information, please contact: [phone] * Full Code (Latest Code Status on File) Date Activated Date Inactivated Comments 05/28/2009 8:02 AM 05/28/2009 5:44 PM * Full Code Date Activated Date Inactivated Comments 05/28/2009 6:40 AM 05/28/2009 8:02 AM Care Teams Associate Director Relationship Specialty Start Date End Date Eliezer Guillermo MD [address] [place] [address] [place] [id number] PCP - General Family Practice 11/14/11
== END 2024-07-03 13:59 | disposition home or self-care (01) ==
LOC: ANHIMG 14:02
PROVIDERS: Visit Provider Family Medicine
DX: Z12.31 Encounter for screening mammogram for malignant neoplasm of breast (principal)
CPT/HCPCS: 77063; 77067